=== PATIENT | female | born 1945 | race Caucasian/White ===

== ENCOUNTER → 2017-01-12 | Outpatient (REF) ==
[~2017-01-12] MED LIST: ADVIL200 MG PO; ALEVE 220MG220 MG PO; ASPIRIN 81M81 MG/TA2 PO; ASPIRIN E.C. 8181 MG PO; EPA FISH OIL1 SGL PO; HYALURONIC ACID; LOFIBRA160 MG PO; MAXZIDE-25MG TA1 TAB PO; OMEGA 31000 MG PO; PHARMASSURE ZIN50 MG PO; SYNTHROID0.075 MG/T PO; THE MEDICINE S300 M1 PO; TYLENOL 325MG325 MG PO; VITAMIN D 1001000 IU PO; VITAMIN D 400400 IU PO
== END ==
LOC: ZLAB.WCH 11:23
DX: Z01.89 Encounter for other specified special examinations (principal)

== ENCOUNTER → 2017-06-20 | Outpatient (REF) | LOC: ZLAB.WCH 18:07 | DX: Z01.89 Encounter for other specified special examinations (principal) ==

== ENCOUNTER 2017-06-24 10:03 | Day surgery (SDC) | payer MEDICARE, BC ==
[2017-06-24] VITALS (10 sets, daily range): BP systolic 117–149; BP diastolic 60–88; PULSE 61–87; TEMP 98–98.1
[~2017-06-24] VITALS: Ht 154.9 cm; Wt 77.2 kg
[~2017-06-24 10:03] MED LIST changes: -ASPIRIN E.C. 8181 MG PO; -EPA FISH OIL1 SGL PO; -MAXZIDE-25MG TA1 TAB PO; -VITAMIN D 400400 IU PO
[2017-06-24] MEDS ORDERED: MAXZIDE-25MG TA1 TAB PO (10:36)
[2017-06-24] MEDS ORDERED: SYNTHROID0.075 MG/T PO (10:37)
[2017-06-24] MEDS ORDERED: LOFIBRA160 MG PO (10:37)
[2017-06-24] MEDS ORDERED: VITAMIN D 400400 IU PO (10:38)
[2017-06-24] MEDS ORDERED: EPA FISH OIL1 SGL PO (10:38)
[2017-06-24] MEDS ORDERED: ASPIRIN E.C. 8181 MG PO (10:39)
[2017-06-25 01:15] VITALS: BP 108/52; PULSE 62; TEMP 98.5
[2017-06-25 05:19] VITALS: BP 112/48; PULSE 81; TEMP 98.6
[2017-06-25 09:54] VITALS: BP 79/51; BP 95/42; PULSE 105; TEMP 98.2
[2017-06-25 13:43] VITALS: BP 119/54; PULSE 69; TEMP 97.6
== END 2017-06-25 17:00 | disposition home or self-care (01) ==
LOC: SDCO 10:03 → JCC 12:15 → SDCO 06-25 17:00
DX: C67.9 Malignant neoplasm of bladder, unspecified (principal); E78.5 Hyperlipidemia, unspecified; E03.9 Hypothyroidism, unspecified; N28.1 Cyst of kidney, acquired; M19.90 Unspecified osteoarthritis, unspecified site; F17.210 Nicotine dependence, cigarettes, uncomplicated; Z85.51 Personal history of malignant neoplasm of bladder; G89.29 Other chronic pain; R12 Heartburn
CPT/HCPCS: OP; A9284; J0690; J1100; J1170; J2704; J7120; J9280

== ENCOUNTER 2021-09-20 11:23 | Emergency (ER) | payer MEDICARE ==
[~2021-09-20] VITALS: Ht 157.5 cm; Wt 68.2 kg
[~2021-09-20 11:23] MED LIST changes: +ASPIRIN E.C. 8181 MG PO; +EPA FISH OIL1 SGL PO; +MAXZIDE-25MG TA1 TAB PO; +VITAMIN D 400400 IU PO
[2021-09-20 11:37] VITALS: TEMP 98.1
[2021-09-20 14:20] VITALS: BP 150/61; PULSE 80
== END 2021-09-20 14:22 | disposition home or self-care (01) ==
LOC: COL.ER 11:23
DX: S82.402A Unspecified fracture of shaft of left fibula, initial encounter for closed fracture (principal); I10 Essential (primary) hypertension; E03.9 Hypothyroidism, unspecified; H81.09 Meniere's disease, unspecified ear; F17.210 Nicotine dependence, cigarettes, uncomplicated; Z79.82 Long term (current) use of aspirin; Z79.890 Hormone replacement therapy; X50.1XXA Overexertion from prolonged static or awkward postures, initial encounter; Y93.01 Activity, walking, marching and hiking